=== PATIENT | female | born 1950 | race African-American/Black ===

== ENCOUNTER 2016-07-15 10:41 | Observation (INO) ==
[2016-07-15] MEDS ORDERED: ASPIRIN 325 MG TABLET PO STA (11:06)
[2016-07-15] MEDS ORDERED: KETOROLAC 30 MG/1 ML VIAL IV STA (11:06)
--- NOTE | 2016-07-15 11:19 | Emergency Department Note ---
[place], am scribing for, and in the presence of, Erick Keyes MD 11 :13. Stephy [place] James D, MD, personally performed the services described in this documentation, ascribed by Jakob Olsen in my presence, and it is both accurate and complete . Arrival - Arrival Chief Complaint: Chest Pain Stated Complaint: chest pain ED Nursing Triage Note: PT C/O MIDSTERNAL CHEST PAIN, ONSET 0400 THIS AM. PT STATES SHE WAS AT REST. PAIN IS REPRODUCABLE TO MOVEMENT AND PALPATION. DENIES N /V OR SOB. PT STATES SHE HAS HAD A COLD. Mode of Arrival: Wheelchair Limitations: No Limitations Source: Patient Time Seen by Provider: 07/15/16 10:58 - History of Present Illness HPI Narrative: Pt is a 65 y/o black female presenting to the ED with c/o midsternal chest pain that onset yesterday. She states the chest pain is exacerbated with movement and palpation. She has becoming SOB and states it is worse when she is walking uphill or walking up the steps to get to her home. Pt was sweeping the floor and had to stop and take a break because she became SOB. Pt had a triple bypass surgery in 2008 and states the chest pain she was experiencing prior to this surgery is the same pain she is feeling now. 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 Garvin. She has some diaphoresis with her SOB but denies fever, chills, nausea, vomiting , diarrhea, abdominal pain, back pain, dysuria. Pt has some pedal edema to her right leg and tenderness to the dorsal aspect of her left foot. Her PMHx consist of NH in 2008, HTN, and CAD. Consistency: constant Severity: moderate Allergies/Adverse Reactions: Allergies Allergy/AdvReac Type Severity Reaction Status Date / Time No Known Allergies Allergy Verified 07/15/16 10:51 Home Medications: Home Medications Medication Instructions Recorded Confirmed Type Gabapentin 800 mg PO BEDTIME 11/24/14 07/15/16 History Losartan/Hydrochlorothiazide 1 each PO DAILY 11/24/14 07/15/16 History [Losartan-Hctz 50-12.5 mg Tab] Nitroglycerin Sl Tab [Nitrostat] 0.4 mg SL Q5M PRN 02/25/15 07/15/16 History Aspirin EC Tab 325 mg PO DAILY #30 tablet 02/26/15 07/15/16 Rx Baclofen Tab [Lioresal] 10 mg PO BEDTIME 07/15/16 07/15/16 History Morphine Sulfate [Morphine Sulfate 15 mg PO BEDTIME 07/15/16 07/15/16 History ER] Nifedipine [Nifedipine ER] 30 mg PO BEDTIME 07/15/16 07/15/16 History Oxycodone HCl/Acetaminophen 1 each PO QID PRN 07/15/16 07/15/16 History [Percocet 10-325 mg Tablet] hydroCHLOROthiazide 50 mg PO DAILY 07/15/16 07/15/16 History [Hydrochlorothiazide] Review of System - Review of System 12 point system: reviewed and no additional remarkable complaints except as stated - Review of System Constitutional: Present: diaphoresis. Absent: chills, fever, weakness Eyes: Absent: vision change Head/Ears/Nose/Throat: Absent: earache, nasal drainage Respiratory: Present: cough Cardiovascular: Present: chest pain (midsternal and worse with movement and palpation ), dyspnea on exertion. Absent: syncope Gastrointestinal: Absent: abdominal pain, nausea, vomiting, diarrhea Genitourinary female: Absent: dysuria Musculoskeletal: Present: leg pain (lower leg pain and dorsal foot tenderness ) . Absent: arm pain, arthralgia, back pain, neck pain Skin: Absent: rash Neurological: Absent: headache, weakness, numbness, confusion, abnormal gait, vertigo Psychiatric: Absent: anxiety Endocrine: Absent: fatigue Hematological/Lymphatic: Absent: easy bleeding Allergic/Immunologic: Absent: facial swelling Medical,Surgical,& Family Hx - Medical History Cardio: History of: CAD, Hypertension, NH (2008), Cardiovascular Problems ( triple bypass 2008) Psychological: History of: Anxiety Disorders (TAKES XANAX) Neurology: No history of: Seizures HEENT: History of: Eye Problem (READING GLASSES), Dental Problems (TOP PARTIAL) Endocrine: History of: Dyslipidemia Rheumatology: History of;: Rheumatoid Arthritis Gastrointestinal: History of: Liver Problems (hepatitis C, chronic) Musculoskeletal: History of: Back/Neck Problems (BACK PAIN DR LEY), Herniated Disk, Musculoskeletal Problems (BROKEN VERTBRA) Hematology: History of: Blood Transfusion Reaction Reproductive: History of: Complication (2 MISCARRIAGES) Other: History of: Miscellaneous Medical Problems (HEP C) No history of: Anesthesia Reactions - Surgical History Cardiac Surgeries: Sugical HX of: Cardiac Catheterization, Cardiac Surgery ( remote coronary artery bypass grafting graft number and sites are unknown) HEENT Surgeries: Patient denies: Eye Surgery, Tonsilectomy & Adenoidectomy Abdominal Surgeries: Surgical HX of: Abdominal Surgery, Appendectomy (1959) Reproductive Surgeries: Surgical HX of;: Dilation and Curettage, Gynecologic Surgery Orthopedic Surgeries: Surgical HX of;: Orthopedic Surgery (RT THR) - Family History Family History: Reports;: Family Cancer (MATERNAL GRANDFATHER), Family Diabetes (PATERNAL GRANDFATHER), Family Hypertension (GRANDMOTHER FATHER), Family Stroke (GRANDMOTHER) - Social History Smoking Status: Former smoker Frequency of Alcohol Use: None Type of Drug Use: None Exam Vital Signs: Vital Signs Temperature 98.6 F 07/15/16 10:47 Pulse Rate 74 07/15/16 12:52 Respiratory Rate 16 07/15/16 12:52 Blood Pressure 131/78 07/15/16 12:52 O2 Sat by Pulse Oximetry 100 07/15/16 12:52 GENERAL: This is a well-nourished well-developed black female in no apparent distress. VITAL SIGNS: Reviewed HEENT: Head is atraumatic and normocephalic. Pupils are equal round react to light. Extraocular movements are intact. Oropharynx is benign with moist mucous membranes. NECK: Neck is soft and supple without tenderness. There are no masses. There is no lymphadenopathy. LUNGS: Lungs are clear to auscultation. Chest rises symmetrically. There is chest wall tenderness to palpation overlying the left costochondral junction. CV: Heart is regular rate and rhythm without murmurs rubs or gallops. ABDOMEN: Abdomen is soft, nontender to palpation. There are no abdominal abnormal masses palpated. There is no organomegaly. Bowel sounds are present and active. SKIN: Skin is warm and dry. No rash. EXTREMITIES: Patient has full range of motion without tenderness. There is no pedal edema. NEUROLOGIC: Awake alert and oriented. Cranial nerves II through XII are intact. Motor is 5 over 5 in all extremities bilaterally. Course - Consultations Consultation #1: Discussed with cardiology. Patient will be admitted to their service. Initial orders written for them. Time: 14:05 Results - Labs CBC & BMP: 07/15/16 11:06 07/15/16 11:23 Lab Results: I have reviewed the patients labs Labs: Laboratory Tests 07/15/16 07/15/16 11:06 11:23 INR 1.0 Troponin I < 0.015 - EKG EKG results: interpreted by ERMD - Impressions EKG: Normal sinus rhythm with a rate of 78, left atrial enlargement, left ventricular hypertrophy, nonspecific ST-T wave changes. - Diagnostic Findings Procedure: Chest x-ray: image reviewed by me Disposition Clinical Impression: Chest pain, CAD (coronary artery disease) Case discussed with: patient Disposition: Still a Patient Condition: Stable Time of Disposition: 14:05
[2016-07-15] MEDS ORDERED: KETOROLAC 30 MG/1 ML VIAL ONE (11:25)
[2016-07-15] MEDS ORDERED: ASPIRIN 325 MG TABLET ONE (11:25)
[2016-07-15 11:52] LABS: Basophils % 0.3 % (0.0-0.8); Eosinophils # 0.1 10*3/uL (0.0-0.87); Eosinophils % 0.7 % (0.00-10.9); Hematocrit 38.5 VOL% (35.7-47.0); Hemoglobin 12.7 GM/DL (12.0-16.0); Immature Granulocytes % 0.5 %; Immature Granulocytes Absolute 0.05 #; Lymphocytes # 1.9 10*3/uL (1.4-4.0); Lymphocytes % 18.4 % (21.3-54.2); Mean Corpuscular Hemoglobin 31 PG (27-34); Mean Corpuscular Volume 92.3 FL (87-102); Mean Platelet Volume 10.7 FL (9.6-12.0); Monocytes # 0.8 10*3/uL (0.11-0.8); Monocytes % 7.9 % (1.7-12.7); Neutrophils # 7.6 10*3/uL (1.4-7.4); Neutrophils % 72.2 % (38.7-73.9); Platelet Count 236 10*3/uL (130-400); Red Blood Count 4.17 10*6/uL (3.8-5.5); Red Cell Distribution Width 13.9 % (9.3-17.3); White Blood Count 10.5 10*3/uL (4.5-13.71)
--- NOTE | 2016-07-15 12:02 | XRay Report ---
Exam: XR chest 2V Date: 07/15/2016 11:07 AM Indication: Chest pain Comparison: 02/22/2015 Technical: PA lateral Findings: Previous sternotomy present. Scarring present in the left midlung zone left base. Mild elevation left hemidiaphragm. No obvious consolidating infiltrate or effusion. The spine is unremarkable. Impression: 1. Previous sternotomy 2. Chronic elevation left hemidiaphragm with scarring in the left base without acute pathology PROCEDURE INTERPRETED AT [facility] DEPARTMENT OF RADIOLOGY Final Report Signed by: Dr. Dallas Perez
[2016-07-15 12:06] LABS: Albumin 3.4 G/DL (3.4-5.0); Bilirubin,Total 0.5 MG/DL (0.2-1.0); Calcium 8.9 MG/DL (8.5-10.1); Osmolality,Calculated 279.3 MOS/KG (273-304); Potassium 4.1 MMOL/L (3.5-5.1); Total Protein 8.4 G/DL (6.4-8.3)
[2016-07-15 12:15] LABS: PT Patient Result 10.3 SECS; Partial Thromboplastin Time 25.4 SECS (0-40)
--- NOTE | 2016-07-15 14:07 | EKG Report ---
Stationary ECG Study [facility] ER Test Date: 07/15/2016 10:56:17 AM Pat Name: SAVANNA WEBB Department: Room: 296 Gender: F Lecturer In Marketing: : 1950 Requested by: Erick Card Order Number: [id number] Reading MD: GREGORY NORIEGA Intervals [place] Rate: 78 P: 57 FL: 133 QRS: 68 QRSD: 107 T: 91 QT: 317 QTc: 351 Interpretive Statements SINUS RHYTHM at 78 bpm POSSIBLE LEFT ATRIAL ENLARGEMENT baseline artifact noted Electronically Signed On 07-16-16 16:41:53 SALES INSPECTOR by GREGORY NORIEGA [email or web address]
[2016-07-15] MEDS ORDERED: ENOXAPARIN 80 MG/0.8 ML SYRINGE SUBCUT ONE (14:26)
[2016-07-15] MEDS ORDERED: ENOXAPARIN 80 MG/0.8 ML SYRINGE SUBCUT STA (14:27)
--- NOTE | 2016-07-15 14:36 | EKG Report ---
Stationary ECG Study [facility] ER Test Date: 07/15/2016 2:34:14 PM Pat Name: SAVANNA WEBB Department: Room: 296 Gender: F Content Developer: NAHUN : 1950 Requested by: Erick Card Order Number: [id number] Reading MD: ANA FREITAS Intervals [place] Rate: 72 P: 55 UT: 153 QRS: 82 QRSD: 97 T: 83 QT: 408 QTc: 432 Interpretive Statements SINUS RHYTHM Electronically Signed On 07-17-16 07:35:54 GANG INVESTIGATOR by ANA FREITAS [email or web address]
[2016-07-15] MEDS ORDERED: MAGNESIUM SULF RIDER 4 GM in PREMIX 1 EACH IV PRN (15:38)
[2016-07-15] MEDS ORDERED: MAGNESIUM SULF RIDER 2 GM in PREMIX 1 EACH IV PRN (15:38)
[2016-07-15] MEDS ORDERED: ONDANSETRON 4 MG/2 ML VIAL IV PRN (15:38)
[2016-07-15] MEDS ORDERED: MORPHINE 2 MG/1 ML SYRINGE IV PRN (15:38)
[2016-07-15] MEDS ORDERED: INFLUENZA VIRUS VACCINE 0.5 ML SYRINGE IM ONE (15:49)
[2016-07-15] MEDS: PANTOPRAZOLE 40 MG TABLET PO SCH (17:03)
[2016-07-15] MEDS: SODIUM CHLORIDE 0.9% 1,000 ML IV SCH (17:04)
[2016-07-16] MEDS: SODIUM CHLORIDE 0.9% 1,000 ML IV SCH ×3 (00:37→17:15)
[2016-07-16] MEDS: ENOXAPARIN 80 MG/0.8 ML SYRINGE SUBCUT SCH ×2 (02:23→14:21)
[2016-07-16] MEDS ORDERED: ASPIRIN 325 MG TABLET PO SCH (09:00)
[2016-07-16] MEDS: PANTOPRAZOLE 40 MG TABLET PO SCH (09:03)
--- NOTE | 2016-07-16 09:10 | Cardiology History & Physical ---
Assessment and Plan - Time spent with patient Time spent with patient: Greater than 30 minutes (1) Chest pain in adult Status: Acute Assessment and plan: differential diagnosis would include coronary disease, GI, or muscle skeletal. It would also include some stress/anxiety, given her recent situation Plan/recommendation: Admit to monitored bed. Serial enzymes. Lovenox. Aspirin. Treat for chest wall pain with gabapentin, naproxen, Tylenol, tramadol. Treat for GI cause with proton pump inhibitor. If positive enzymes or change in EKG will cath. If negative, will consider treating her chest wall pain and GI cause, letting her go home, and the letting her follow-up with Dr. Jeanine Wilkins as is scheduled on Sunday08/07/16. At that point, the 2 of them can decide about doing a treadmill/Cardiolite outpatient or a heart cath. The above was discussed with the patient. She voices understanding and agrees with the plan. Current Visit: Yes (2) Chest wall pain Status: Acute Current Visit: Yes (3) History of coronary artery bypass graft Status: Acute Current Visit: Yes (4) Anxiety Status: Acute Current Visit: Yes (5) Stress and adjustment reaction Status: Acute Current Visit: Yes (6) CAD (coronary artery disease) Status: Acute Current Visit: Yes (7) Dyslipidemia Status: Acute Current Visit: No (8) Hepatitis C Status: Acute Current Visit: No (9) Hypertension Status: Acute Current Visit: No (10) Osteoarthritis Status: Acute Current Visit: No (11) S/P total hip arthroplasty Status: Acute Current Visit: No History of Present Illness Chief complaint: "My chest hurt" 1 hour History of present illness: Ms. Shin is a 65 year old female PCP: Dr. Kat Ervin Magnetic Prospector: Dr. Jeanine Wilkins Patient has known CAD. She had a coronary bypass grafting 2008. She presents with chest pain which she says is somewhat like before her bypass. However, she describes it different. She says the pain before bypass was a burning pain in her left chest, lower area. His current pain is a heaviness in her mid chest. It seemed to come on when she was hyper or upset. He is under stress with her neighbor, an argument. Nitroglycerin did seem to help it. It is in her mid chest. It lasted an hour. No exertional chest pain. No orthopnea, PND, edema, palpitations, syncope, cough, wheezing, or phlegm. Upper respiratory infection-recently Hypertension Hyperlipidemia Does not smoke cigarettes or drink alcohol There is a family history of cad. Her grandfather of an [place] at old age. Not remarkable diabetes. A 12 point review of systems is unremarkable. No dysphagia odynophagia GE reflux. Home Medications Medication Instructions Recorded Confirmed Type Gabapentin 800 mg PO BEDTIME 11/24/14 07/15/16 History Losartan/Hydrochlorothiazide 1 each PO DAILY 11/24/14 07/15/16 History [Losartan-Hctz 50-12.5 mg Tab] Nitroglycerin Sl Tab [Nitrostat] 0.4 mg SL Q5M PRN 02/25/15 07/15/16 History Aspirin EC Tab 325 mg PO DAILY #30 tablet 02/26/15 07/15/16 Rx Baclofen Tab [Lioresal] 10 mg PO BEDTIME 07/15/16 07/15/16 History Morphine Sulfate [Morphine Sulfate 15 mg PO BEDTIME 07/15/16 07/15/16 History ER] Nifedipine [Nifedipine ER] 30 mg PO BEDTIME 07/15/16 07/15/16 History Oxycodone HCl/Acetaminophen 1 each PO QID PRN 07/15/16 07/15/16 History [Percocet 10-325 mg Tablet] hydroCHLOROthiazide 50 mg PO DAILY 07/15/16 07/15/16 History [Hydrochlorothiazide] Allergies Allergy/AdvReac Type Severity Reaction Status Date / Time No Known Allergies Allergy Verified 07/15/16 10:51 12 point system: reviewed and no additional remarkable complaints except as stated (A 12 point review of systems is negative except for as mentioned in HPI. ) Medical,Surgical,& Family Hx - Medical History Cardio: History of: CAD, Hypertension, [place] (2008), Cardiovascular Problems ( triple bypass 2008) Psychological: History of: Anxiety Disorders (TAKES XANAX) Neurology: No history of: Seizures HEENT: History of: Eye Problem (READING GLASSES), Dental Problems (TOP PARTIAL) Endocrine: History of: Dyslipidemia Rheumatology: History of;: Rheumatoid Arthritis Gastrointestinal: History of: Liver Problems (hepatitis C, chronic) Musculoskeletal: History of: Back/Neck Problems (BACK PAIN DR LEY), Herniated Disk, Musculoskeletal Problems (BROKEN VERTBRA) Hematology: History of: Blood Transfusion Reaction Reproductive: History of: Complication (2 MISCARRIAGES) Other: History of: Miscellaneous Medical Problems (HEP C) No history of: Anesthesia Reactions - Surgical History Cardiac Surgeries: Sugical HX of: Cardiac Catheterization, Cardiac Surgery ( remote coronary artery bypass grafting graft number and sites are unknown) HEENT Surgeries: Patient denies: Eye Surgery, Tonsilectomy & Adenoidectomy Abdominal Surgeries: Surgical HX of: Abdominal Surgery, Appendectomy (1958) Reproductive Surgeries: Surgical HX of;: Dilation and Curettage, Gynecologic Surgery Orthopedic Surgeries: Surgical HX of;: Orthopedic Surgery (RT THR) - Family History Family History: Reports;: Family Cancer (MATERNAL GRANDFATHER), Family Diabetes (PATERNAL GRANDFATHER), Family Hypertension (GRANDMOTHER FATHER), Family Stroke (GRANDMOTHER) - Social History Smoking Status: Former smoker Frequency of Alcohol Use: None Type of Drug Use: None Functional capacity: independent ambulation Cardiology Physical Exam - Constitutional Vitals: Vital Signs Temp Pulse Resp BP Pulse Ox 97.4 F L 72 20 129/80 97 07/16/16 07:56 07/16/16 07:56 07/16/16 07:56 07/16/16 07:56 07/16/16 07:56 Intake and Output 07/15/16 07/16/16 07/16/16 23:59 07:59 15:59 Intake Total 500 / 500 1100 / 1100 Output Total 0 / 0 Balance 500 / 500 1100 / 1100 Intake: IV 1000 / 1000 Ns 1,000 ml @ 125 mls/hr 1000 / 1000 IV .Q8H PHIL Rx#: [id number] Oral 500 / 500 100 / 100 Output: Stool 0 / 0 Emesis 0 / 0 Other: Voiding Method Toilet Toilet # Voids 2 3 Weight 78.925 kg Patient Weight 07/16/16 23:59 Weight 78.925 kg Exam: HEENT: Pupils equal, reactive to light and accommodation Neck: NoJVD or bruit Lungs clear to auscultation Heart: Regular rhythm rate with normal S1 and S2. Apical S4 Abdomen: No hepatosplenomegaly Spine/extremities: No clubbing, cyanosis, or edema Neuro: Nonfocal Psych: No depression ; slightly anxious There is some chest wall tenderness but she thinks it may not be the same index pain. Result/EKG - Labs CBC & BMP: 01/21/17 11:06 07/15/16 11:23 Lab Results: I have reviewed the past 24 hour labs Labs: Laboratory Results - last 24 hr 07/15/16 07/15/16 14:24 17:30 Troponin I < 0.015 < 0.015 - Diagnostic Findings Procedure: Chest x-ray: report reviewed by me - EKG EKG results: interpreted by me
[2016-07-16] MEDS ORDERED: NITROGLYCERIN SL 0.4 MG TABLET SL PRN (09:18)
[2016-07-16] MEDS ORDERED: oxyCODONE/ACETAMINOPHEN 5-325 MG TABLET PO PRN (09:18)
[2016-07-16] MEDS ORDERED: LOSARTAN/HCTZ 50-12.5 MG TABLET PO SCH (09:19)
--- NOTE | 2016-07-16 09:23 | Discharge Summary ---
Hospital Course - Hospital Course Hospital Course: The patient was admitted check with chest pain. She said it was like her pain before bypass. However, she describes it it sounds different from her bypass pain. Overnight cardiac isoenzymes were negative. EKG did not change. Her pain went away. She did have chest wall pain. I treated that pain. It is better. I discussed with her about heart cath versus letting her go home and seen Dr. Wilkins in deciding about a treadmill or heart cath at his follow-up on . She prefers the latter. I agree with that plan. She is essentially asymptomatic at this time and does not have ACS. She will come back if she has more problems. - Time spent with patient Time with patient DS: Greater than 30 minutes Diagnosis - Discharge Diagnosis (1) Chest pain in adult Status: Acute (2) Chest wall pain Status: Acute (3) History of coronary artery bypass graft Status: Acute (4) Anxiety Status: Acute (5) Stress and adjustment reaction Status: Acute (6) CAD (coronary artery disease) Status: Acute (7) Dyslipidemia Status: Acute (8) Hepatitis C Status: Acute (9) Hypertension Status: Acute (10) Osteoarthritis Status: Acute (11) S/P total hip arthroplasty Status: Acute (12) Chronic pain Status: Acute Specialty Discharge - Follow Up or Referrals Follow up with: Jeanine Garvin DO [Physician] - (On 08/07/16 as is scheduled. Have her call him sooner if problems arise.) Discharge Plan - Discharge Data Disposition: Disch To Home/Self Care Condition at Discharge: Stable Discharge Diet: heart healthy, low fat, low cholesterol Activity: no lifting (Give your upper body some rest. Try to lift over about 10 pounds for the next week to not strain your chest.) Hygiene: no restrictions Weight Bearing at Discharge: full weight bearing Driving: not for (5 days) - Discharge Medications New Loratadine Tab [Claritin Tab] 10 mg PO DAILY tablet Naproxen [Naprosyn Tab] 250 mg PO BID tablet Omeprazole [Prilosec] 20 mg PO DAILY #30 capsule traMADol TAB [Ultram] 50 mg PO BID #30 tablet Acetaminophen Tab [Tylenol Tab] 325 mg PO BID tablet Venlafaxine [Effexor] 75 mg PO BID #60 tablet Continue Losartan/Hydrochlorothiazide [Losartan-Hctz 50-12.5 mg Tab] 1 each PO DAILY Gabapentin 800 mg PO BEDTIME Nitroglycerin Sl Tab [Nitrostat] 0.4 mg SL Q5M PRN PRN Reason: Chest Pain Aspirin EC Tab 325 mg PO DAILY #30 tablet Oxycodone HCl/Acetaminophen [Percocet 10-325 mg Tablet] 1 each PO QID PRN PRN Reason: Pain hydroCHLOROthiazide [Hydrochlorothiazide] 50 mg PO DAILY Baclofen Tab [Lioresal] 10 mg PO BEDTIME Nifedipine [Nifedipine ER] 30 mg PO BEDTIME Morphine Sulfate [Morphine Sulfate ER] 15 mg PO BEDTIME - Follow Up or Referral - Forms/Instructions Instructions: Noncardiac Chest Pain (DC), Chest Wall Pain (GEN) Exam - Constitutional Vitals: Period Temp Pulse Resp BP Sys/Jensen Pulse Ox Last 24 Hr 97.4 F-98.3 F 71-76 16-20 104-138/61-86 93-99 Exam: HEENT: Pupils equal, reactive to light and accommodation Neck: NoJVD or bruit Lungs clear to auscultation Heart: Regular rhythm rate with normal S1 and S2. Apical S4 Abdomen: No hepatosplenomegaly Spine/extremities: No clubbing, cyanosis, or edema Neuro: Nonfocal Psych: No depression or anxiety No or minimal chest wall tenderness at this time. Discharge Results Labs on day of discharge: Labs from last 24 hours 07/15/16 07/15/16 17:30 14:24 Troponin I < 0.015 < 0.015 DS: Provider Date of admission: 07/15/16 14:05 Primary care physician: Shandra Velasco MD Attending physician on admission: Tyrone George Consults: 07/15/16 15:57 Consult to Pharmacy [CONS] Routine Reason for Pharmacy Consult: Adjust Meds Renal Funct Discharging clinician: Felipe Chopra MD
[2016-07-16] MEDS ORDERED: NAPROXEN 250 MG TABLET PO SCH (09:30)
[2016-07-16] MEDS ORDERED: traMADol 50 MG TABLET PO SCH (09:30)
[2016-07-16] MEDS ORDERED: hydroCHLOROthiazide 25 MG TABLET PO SCH (09:30)
[2016-07-16] MEDS ORDERED: VENLAFAXINE 75 MG TABLET PO SCH (09:30)
[2016-07-16] MEDS ORDERED: ACETAMINOPHEN 325 MG TABLET PO SCH (09:30)
[2016-07-16] MEDS ORDERED: LORATADINE 10 MG TABLET PO SCH (10:00)
[2016-07-16] MEDS: PSEUDOEPHEDRINE 30 MG TABLET PO SCH ×2 (10:37→17:15)
[2016-07-16 16:37] VITALS: BP 132/74
[2016-07-16] MEDS ORDERED: MORPHINE ER 15 MG TABLET PO SCH (21:00)
[2016-07-16] MEDS ORDERED: GABAPENTIN 400 MG CAPSULE PO SCH (21:00)
[2016-07-16] MEDS ORDERED: BACLOFEN 10 MG TABLET PO SCH (21:00)
== END 2016-07-16 17:20 | disposition home or self-care (01) ==
LOC: N.ED 10:41 → N.EDINP 10:41 → N.TELEN 15:37
PROVIDERS: ADMIT Internal Medicine Cardiovascular Disease; ATTEND Internal Medicine Cardiovascular Disease

== ENCOUNTER 2020-01-20 05:49 | Inpatient (IN) ==
[2020-01-14 11:44] LABS: Basophils % 0.4 % (0.0-0.8); Eosinophils # 0.2 10*3/uL (0.0-0.87); Eosinophils % 2.7 % (0.00-10.9); Hematocrit 37.3 VOL% (35.7-47.0); Hemoglobin 12.3 GM/DL (12.0-16.0); Immature Granulocytes % 0.1 %; Immature Granulocytes Absolute 0.01 #; Lymphocytes # 2.3 10*3/uL (1.4-4.0); Lymphocytes % 34.9 % (21.3-54.2); Mean Corpuscular Volume 90.8 FL (87-102); Mean Platelet Volume 9.9 FL (9.6-12.0); Monocytes % 12.5 % (1.7-12.7); Neutrophils % 49.4 % (38.7-73.9); Platelet Count 225 T/CUMM (130-400); Red Blood Count 4.11 MC/CUMM (3.8-5.5); Red Cell Distribution Width 14.2 % (9.3-17.3); White Blood Count 6.7 T/CUMM (4-12)
[2020-01-14 11:53] LABS: Bacteria,Urine Few /HPF (Few); Bilirubin,Urine Negative (Negative); Blood, Urine Negative (Negative); Glucose,Urine (UA) Negative (Negative); Ketones,Urine Negative (Negative); Mucus,Urine Occasional /LPF (Occasional); Nitrite,Urine Negative (Negative); Protein,Urine Negative; RBC,Urine 2 /HPF (0-4); Squamous Epithelial Cell,Urine Occasional /HPF (0-10); Urine Appearance Slightly Hazy (Clear); Urine Color Yellow (Yellow); Urine Specific Gravity 1.012 (1.001-1.035); WBC,Urine 8 /HPF (0-6)
[2020-01-14 11:56] LABS: PT Patient Result 10.9 SECS (9.8-11.9); Partial Thromboplastin Time 27.1 SECS (23.9-33.8)
[2020-01-14 12:06] LABS: Albumin 3.4 G/DL (3.4-5.0); Bilirubin,Total 0.6 MG/DL (0.2-1.0); Calcium 8.9 MG/DL (8.5-10.1); Osmolality,Calculated 271.8 MOS/KG (273-304); Total Protein 7.9 G/DL (6.4-8.3)
[2020-01-20] MEDS ORDERED: ceFAZolin 1,000 MG in SYRINGE 1 EACH IV ONE (07:00)
[2020-01-20] MEDS ORDERED: VANCOMYCIN INJ 1,000 MG in SODIUM CHLORIDE 0.9% 250 ML IV ONE (07:00)
[2020-01-20] MEDS ORDERED: MORPHINE 4 MG/1 ML VIAL IV STA (07:19)
[2020-01-20] MEDS ORDERED: DIAZEPAM 5 MG TABLET PO STA (07:19)
[2020-01-20] MEDS ORDERED: ceFAZolin 1,000 MG VIAL ONE (07:22)
[2020-01-20] MEDS ORDERED: VANCOMYCIN 1,000 MG VIAL ONE (07:22)
[2020-01-20] MEDS ORDERED: LACTATED RINGERS 1,000 ML IV SCH (07:30)
[2020-01-20] MEDS ORDERED: DEXAMETHASONE 4 MG/1 ML VIAL ONE (07:53)
[2020-01-20] MEDS ORDERED: ROPIVACAINE 0.5% 30 ML VIAL ONE (07:53)
[2020-01-20] MEDS ORDERED: NITROGLYCERIN SL 0.4 MG TABLET SL PRN (08:59)
[2020-01-20] MEDS ORDERED: ZALEPLON 5 MG CAPSULE PO PRN (09:00)
[2020-01-20] MEDS ORDERED: MORPHINE 4 MG/1 ML VIAL IV PRN ×2 (09:00)
[2020-01-20] MEDS ORDERED: MAGNESIUM HYDROXIDE SUSP 30 ML UDCUP PO PRN (09:00)
[2020-01-20] MEDS ORDERED: oxyCODONE IR 5 MG TABLET PO PRN (09:00)
[2020-01-20] MEDS ORDERED: diphenhydrAMINE CAP 25 MG CAPSULE PO PRN (09:00)
[2020-01-20] MEDS ORDERED: ONDANSETRON 4 MG/2 ML VIAL IV PRN (09:00)
[2020-01-20] MEDS ORDERED: BACITRACIN OINT 0.9 GM PACK TOP ONE (09:42)
[2020-01-20] MEDS ORDERED: KETAMINE 500 MG/10 ML VIAL ONE (10:32)
[2020-01-20] MEDS ORDERED: propofoL 200 MG/20 ML VIAL IV ONE (10:32)
[2020-01-20] MEDS ORDERED: LIDOCAINE 2% 5 ML VIAL ONE (10:32)
[2020-01-20] MEDS ORDERED: SODIUM CHLORIDE 0.9% 250 ML IV ONE (10:33)
[2020-01-20] MEDS ORDERED: ACETAMINOPHEN 1,000 MG/100 ML VIAL IV ONE (10:33)
[2020-01-20] MEDS ORDERED: ONDANSETRON 4 MG/2 ML VIAL ONE (10:33)
[2020-01-20] MEDS ORDERED: MIDAZOLAM 2 MG/2 ML VIAL ONE (10:33)
[2020-01-20] MEDS ORDERED: fentaNYL 100 MCG/2 ML VIAL ONE (10:33)
[2020-01-20] MEDS ORDERED: TRANEXAMIC ACID 1,000 MG/10 ML VIAL ONE (10:33)
[2020-01-20] MEDS: KETOROLAC 15 MG/1 ML VIAL IV SCH ×3 (10:51→21:44)
[2020-01-20] MEDS: LACTATED RINGERS 1,000 ML IV SCH ×3 (12:03→20:03)
[2020-01-20] MEDS ORDERED: HYDROmorphone 2 MG/1 ML VIAL ONE (13:08)
[2020-01-20] MEDS ORDERED: HYDROmorphone 2 MG/1 ML VIAL IV PRN (13:13)
[2020-01-20] MEDS: SULFAMETHOX/TRIMETHOPRIM 800-160 MG TABLET PO SCH ×2 (14:33→21:43)
[2020-01-20] MEDS: ceFAZolin 1,000 MG in SYRINGE 1 EACH IV SCH ×2 (14:34→21:42)
[2020-01-20] MEDS: oxyCODONE IR 5 MG TABLET PO PRN (16:26)
[2020-01-20] MEDS: oxyCODONE/ACETAMINOPHEN 5-325 MG TABLET PO PRN (18:10)
[2020-01-20] MEDS: BACLOFEN 10 MG TABLET PO SCH (21:43)
[2020-01-20] MEDS: GABAPENTIN 400 MG CAPSULE PO SCH (21:43)
[2020-01-20] MEDS: MORPHINE ER 15 MG TABLET PO SCH (21:43)
[2020-01-20] MEDS: DOCUSATE SODIUM 100 MG CAPSULE PO SCH (21:44)
[2020-01-21] MEDS: KETOROLAC 15 MG/1 ML VIAL IV SCH (03:15)
[2020-01-21] MEDS: FONDAPARINUX 2.5 MG/0.5 ML SYRINGE SUBCUT SCH (05:07)
[2020-01-21] MEDS: oxyCODONE/ACETAMINOPHEN 5-325 MG TABLET PO PRN ×5 (05:08→23:22)
[2020-01-21 06:50] LABS: Basophils % 0.1 % (0.0-0.8); Eosinophils % 0.5 % (0.00-10.9); Hematocrit 32.6 VOL% (35.7-47.0); Hemoglobin 10.8 GM/DL (12.0-16.0); Immature Granulocytes % 0.4 %; Immature Granulocytes Absolute 0.03 #; Lymphocytes # 1.2 10*3/uL (1.4-4.0); Lymphocytes % 13.6 % (21.3-54.2); Mean Corpuscular HGB Conc 33.1 GM/DL (32-36); Mean Corpuscular Volume 90.6 FL (87-102); Mean Platelet Volume 10.1 FL (9.6-12.0); Monocytes % 12.2 % (1.7-12.7); Neutrophils % 73.2 % (38.7-73.9); Platelet Count 181 T/CUMM (130-400); Red Cell Distribution Width 13.8 % (9.3-17.3); White Blood Count 8.4 T/CUMM (4-12)
[2020-01-21 07:33] LABS: Calcium 8.4 MG/DL (8.5-10.1); Osmolality,Calculated 265.4 MOS/KG (273-304)
[2020-01-21] MEDS: DOCUSATE SODIUM 100 MG CAPSULE PO SCH ×2 (09:48→21:06)
[2020-01-21] MEDS: LOSARTAN/HCTZ 50-12.5 MG TABLET PO SCH (09:49)
[2020-01-21] MEDS: hydroCHLOROthiazide 25 MG TABLET PO SCH (09:49)
[2020-01-21] MEDS: SULFAMETHOX/TRIMETHOPRIM 800-160 MG TABLET PO SCH ×2 (09:49→21:06)
[2020-01-21] MEDS: ATORVASTATIN 40 MG TABLET PO SCH (09:49)
[2020-01-21] MEDS: POTASSIUM CHLORIDE 10 MEQ TABLET PO SCH (09:49)
[2020-01-21] MEDS: oxyCODONE IR 5 MG TABLET PO PRN (12:33)
[2020-01-21] MEDS: MORPHINE ER 15 MG TABLET PO SCH (21:06)
[2020-01-21] MEDS: BACLOFEN 10 MG TABLET PO SCH (21:06)
[2020-01-21] MEDS: GABAPENTIN 400 MG CAPSULE PO SCH (21:06)
[2020-01-22] MEDS: oxyCODONE/ACETAMINOPHEN 5-325 MG TABLET PO PRN ×5 (04:21→23:30)
[2020-01-22] MEDS: FONDAPARINUX 2.5 MG/0.5 ML SYRINGE SUBCUT SCH (05:14)
[2020-01-22 06:24] LABS: Basophils % 0.3 % (0.0-0.8); Eosinophils # 0.2 10*3/uL (0.0-0.87); Eosinophils % 2.4 % (0.00-10.9); Hematocrit 35.3 VOL% (35.7-47.0); Hemoglobin 11.6 GM/DL (12.0-16.0); Immature Granulocytes % 0.3 %; Immature Granulocytes Absolute 0.03 #; Lymphocytes # 1.8 10*3/uL (1.4-4.0); Lymphocytes % 20.4 % (21.3-54.2); Mean Corpuscular HGB Conc 32.9 GM/DL (32-36); Mean Corpuscular Volume 90.5 FL (87-102); Mean Platelet Volume 10.2 FL (9.6-12.0); Monocytes % 13.5 % (1.7-12.7); Neutrophils % 63.1 % (38.7-73.9); Platelet Count 215 T/CUMM (130-400); Red Cell Distribution Width 14.1 % (9.3-17.3); White Blood Count 8.9 T/CUMM (4-12)
[2020-01-22] MEDS: hydroCHLOROthiazide 25 MG TABLET PO SCH (08:04)
[2020-01-22] MEDS: POTASSIUM CHLORIDE 10 MEQ TABLET PO SCH (08:04)
[2020-01-22] MEDS: LOSARTAN/HCTZ 50-12.5 MG TABLET PO SCH (08:05)
[2020-01-22] MEDS: SULFAMETHOX/TRIMETHOPRIM 800-160 MG TABLET PO SCH ×2 (08:05→21:18)
[2020-01-22] MEDS: ATORVASTATIN 40 MG TABLET PO SCH (08:05)
[2020-01-22] MEDS: DOCUSATE SODIUM 100 MG CAPSULE PO SCH ×2 (08:05→21:18)
[2020-01-22] MEDS: MORPHINE ER 15 MG TABLET PO SCH (21:18)
[2020-01-22] MEDS: GABAPENTIN 400 MG CAPSULE PO SCH (21:19)
[2020-01-22] MEDS: BACLOFEN 10 MG TABLET PO SCH (21:19)
[2020-01-23] MEDS: FONDAPARINUX 2.5 MG/0.5 ML SYRINGE SUBCUT SCH (05:35)
[2020-01-23] MEDS: oxyCODONE/ACETAMINOPHEN 5-325 MG TABLET PO PRN ×2 (05:35→13:02)
[2020-01-23 06:01] LABS: Basophils % 0.5 % (0.0-0.8); Eosinophils # 0.3 10*3/uL (0.0-0.87); Eosinophils % 3.9 % (0.00-10.9); Hematocrit 36.8 VOL% (35.7-47.0); Immature Granulocytes % 0.4 %; Immature Granulocytes Absolute 0.03 #; Lymphocytes # 2.4 10*3/uL (1.4-4.0); Lymphocytes % 29.2 % (21.3-54.2); Mean Corpuscular HGB Conc 32.6 GM/DL (32-36); Mean Corpuscular Volume 91.8 FL (87-102); Mean Platelet Volume 10.3 FL (9.6-12.0); Monocytes % 15.3 % (1.7-12.7); Neutrophils % 50.7 % (38.7-73.9); Platelet Count 228 T/CUMM (130-400); Red Blood Count 4.01 MC/CUMM (3.8-5.5); Red Cell Distribution Width 14.1 % (9.3-17.3); White Blood Count 8.2 T/CUMM (4-12)
[2020-01-23] MEDS: LOSARTAN/HCTZ 50-12.5 MG TABLET PO SCH (08:57)
[2020-01-23] MEDS: SULFAMETHOX/TRIMETHOPRIM 800-160 MG TABLET PO SCH (08:57)
[2020-01-23] MEDS: POTASSIUM CHLORIDE 10 MEQ TABLET PO SCH (08:57)
[2020-01-23] MEDS: hydroCHLOROthiazide 25 MG TABLET PO SCH (08:57)
[2020-01-23] MEDS: DOCUSATE SODIUM 100 MG CAPSULE PO SCH (08:58)
[2020-01-23] MEDS: ATORVASTATIN 40 MG TABLET PO SCH (09:34)
[2020-01-23 12:42] VITALS: BP 101/52
== END 2020-01-23 15:29 | disposition home or self-care (01) | DRG 470 ==
LOC: N.OR 05:49 → N.SDSINP 05:54 → N.3E 14:05
PROVIDERS: ADMIT Orthopaedic Surgery; ATTEND Orthopaedic Surgery